=== PATIENT | female | born 1950 | race Caucasian/White ===

== ENCOUNTER 2016-08-19 17:18 | Emergency (ER) | payer MEDICARE ==
[~2016-08-19] VITALS: Ht 160 cm; Wt 56.7 kg
[2016-08-19 17:25] VITALS: BP 135/76
--- NOTE | 2016-08-19 17:54 | EKG ---
[address] [address] Test Date: 2016-08-19 Test Time: 17:50:28 Pat Name: LOPEZ CHRISTIANSON Department: Room: Gender: F Tax Processor: KAMI : 1950 Requested By: ROD PUTNAM Order Number: [id number] Reading MD: Measurements Intervals [place] Rate: 72 P: 40 HI: 146 QRS: -39 QRSD: 84 T: 44 QT: 404 QTc: 444 Interpretive Statements SINUS RHYTHM ABNORMAL LEFT AXIS DEVIATION R-S TRANSITION ZONE IN V LEADS DISPLACED TO THE LEFT LEFT ANTERIOR FASCICULAR BLOCK ABNORMAL ECG RI6.01 Unconfirmed report No previous ECG available for comparison
--- NOTE | 2016-08-19 18:29 | ED.ADGEN ---
Past History Past Medical History: Anxiety, High Cholesterol, Hypertension, TIA Past Surgical History: Appendectomy, Hysterectomy Alcohol Use: None Drug Use: None Adult General HPI HPI Patient is a 66-year-old female presents complaining of 4-5 day history of intermittent palpitations. She denies any associated diaphoresis, dyspnea, nausea, vomiting. She states that it is most pronounced at night which she relates out of bed and begins to think about all the increased stress and events in her life. She does have a history of anxiety. She was seen by her counselor yesterday. She did take an Ativan shortly prior to arrival today reports that is made an improvement in her symptoms. She denies any jerman pain but reports a "fluttering" on both sides of her chest. Review of Systems Review of Systems Constitutional: Denies fever or chills [] Eyes: Denies change in visual acuity, redness, or eye pain [] HENT: Denies nasal congestion or sore throat [] Respiratory: Denies cough or shortness of breath [] Cardiovascular: No additional information not addressed in HPI [] GI: Denies abdominal pain, nausea, vomiting, bloody stools or diarrhea [] : Denies dysuria or hematuria [] Musculoskeletal: Denies back pain or joint pain [] Integument: Denies rash or skin lesions [] Neurologic: Denies headache, focal weakness or sensory changes [] Endocrine: Denies polyuria or polydipsia [] Allergies Allergies Allergies Coded Allergies Type Severity Reaction Last Updated Verified No Known Drug Allergies 08/19/16 No Physical Exam Physical Exam Constitutional: Well developed, well nourished, no acute distress, non-toxic appearance. [] HENT: Normocephalic, atraumatic, bilateral external ears normal, oropharynx moist, no oral exudates, nose normal. [] Eyes: PERRLA, EOMI, conjunctiva normal, no discharge. [] Neck: Normal range of motion, no tenderness, supple, no stridor. [] Cardiovascular:Heart rate regular rhythm, no murmur [] Lungs & Thorax: Bilateral breath sounds clear to auscultation [] Abdomen: Bowel sounds normal, soft, no tenderness, no masses, no pulsatile masses. [] Skin: Warm, dry, no erythema, no rash. [] Back: No tenderness, no CVA tenderness. [] Extremities: No tenderness, no cyanosis, no clubbing, ROM intact, no edema. [] Neurologic: Alert and oriented X 3, normal motor function, normal sensory function, no focal deficits noted. [] Psychologic: Affect normal, judgement normal, mood normal. [] Current Patient Data Vital Signs Vital Signs Date Time Temp Pulse Resp B/P Pulse Ox O2 Delivery O2 Flow Rate FiO2 08/19/16 17:25 98.2 78 18 98 Room Air Lab Results Laboratory Tests Test 08/19/16 18:10 08/19/16 18:14 08/19/16 18:30 White Blood Count 6.4x10^3/uL (4.0-11.0) Red Blood Count 4.10x10^6/uL (3.50-5.40) Hemoglobin 13.0g/dL (12.0-15.5) Hematocrit 38.5% (36.0-47.0) Mean Corpuscular Volume 94fL (79-100) Mean Corpuscular Hemoglobin 32pg (25-35) Mean Corpuscular Hemoglobin Concent 34g/dL (31-37) Red Cell Distribution Width 12.8% (11.5-14.5) Platelet Count 188x10^3/uL (140-400) Neutrophils (%) (Auto) 63% (31-73) Lymphocytes (%) (Auto) 28% (24-48) Monocytes (%) (Auto) 6% (0-9) Eosinophils (%) (Auto) 3% (0-3) Basophils (%) (Auto) 0% (0-3) Neutrophils # (Auto) 4.1x10^3uL (1.8-7.7) Lymphocytes # (Auto) 1.8x10^3/uL (1.0-4.8) Monocytes # (Auto) 0.4x10^3/uL (0.0-1.1) Eosinophils # (Auto) 0.2x10^3/uL (0.0-0.7) Basophils # (Auto) 0.0x10^3/uL (0.0-0.2) Sodium Level 144mmol/L (136-145) Potassium Level 3.8mmol/L (3.5-5.1) Chloride Level 107mmol/L (98-107) Carbon Dioxide Level 28mmol/L (21-32) Anion Gap 9 (6-14) 18mmol/L (6-14) H Blood Urea Nitrogen 16mg/dL (7-20) Creatinine 1.1mg/dL (0.6-1.0) H Estimated GFR (Cockcroft-Gault) 49.4 BUN/Creatinine Ratio 15 (6-20) Glucose Level 138mg/dL (70-99) H 134mg/dL (60-99) H Calcium Level 8.9mg/dL (8.5-10.1) Total Bilirubin 0.9mg/dL (0.2-1.0) Aspartate Amino Transferase (AST) 24U/L (15-37) Alanine Aminotransferase (ALT) 29U/L (14-59) Alkaline Phosphatase 92U/L (46-116) Troponin I Quantitative < 0.017ng/mL (0-0.055) Total Protein 6.8g/dL (6.4-8.2) Albumin 3.7g/dL (3.4-5.0) Albumin/Globulin Ratio 1.2 (1.0-1.7) POC Troponin I 0.00ng/ml (<0.08) POC Hemoglobin 12.6gm/dL POC Hematocrit 37% POC Sodium 141mmol/L (135-145) POC Potassium 3.5mmol/L (3.5-5.0) POC Chloride 103mmol/L (98-110) POC Total CO2 25mmol/L (23-32) POC Blood Urea Nitrogen 15mg/dL (8-26) POC Creatinine 0.9mg/dL (0.5-1.4) POC Ionized Calcium (Marita) 1.13mmol/L (1.13-1.32) EKG EKG EKG interpreted by me, normal sinus rhythm, 70 bpm, no ST segment elevation, left axis deviation. [] Radiology/Procedures Radiology/Procedures Chest x-ray interpreted by me, no acute cardiopulmonary process. [] Course & Med Decision Making Course & Med Decision Making Pertinent Labs and Imaging studies reviewed. (See chart for details) Given the patient's reassuring constellation of symptoms and her history of anxiety combined with her reassuring workup today do believe the patient is appropriate for discharge. She will follow with her primary care physician in the next 2-3 days and return emergency department sooner she develops any new or worsening symptoms. [] Final Impression Final Impression Chest pain Anxiety[] Problems: Dragon Disclaimer Dragon Disclaimer This electronic medical record was generated, in whole or in part, using a voice recognition dictation system. ROD PUTNAM MD Aug 19, 2016 18:29
[2016-08-19 18:33] LABS: BASO % 0 % (0-3); EOS # 0.2 x10^3/uL (0.0-0.7); EOS % 3 % (0-3); HEMATOCRIT 38.5 % (36.0-47.0); LYMPH # 1.8 x10^3/uL (1.0-4.8); LYMPH % 28 % (24-48); MEAN CORPUSCULAR HEMOGLOBIN 32 pg (25-35); MEAN CORPUSCULAR HGB CONC 34 g/dL (31-37); MEAN CORPUSCULAR VOLUME 94 fL (79-100); MONO # 0.4 x10^3/uL (0.0-1.1); MONO % 6 % (0-9); NEUT # 4.1 x10^3uL (1.8-7.7); NEUT % 63 % (31-73); PLATELET COUNT 188 x10^3/uL (140-400); RED CELL DISTRIBUTION WIDTH 12.8 % (11.5-14.5); WHITE BLOOD COUNT 6.4 x10^3/uL (4.0-11.0)
[2016-08-19 18:38] LABS: HEMOGLOBIN ISTAT 12.6 gm/dL; POTASSIUM ISTAT 3.5 mmol/L (3.5-5.0)
[2016-08-19 18:42] LABS: ALBUMIN 3.7 g/dL (3.4-5.0); ALBUMIN/GLOBULIN RATIO 1.2 (1.0-1.7); CALCIUM 8.9 mg/dL (8.5-10.1); CREATININE 1.1 mg/dL (0.6-1.0); GFR 49.4; POTASSIUM 3.8 mmol/L (3.5-5.1); TOTAL BILIRUBIN 0.9 mg/dL (0.2-1.0); TOTAL PROTEIN 6.8 g/dL (6.4-8.2)
--- NOTE | 2016-08-20 08:15 | RAD ---
Chest, 2 views, 08/19/2016: History: Chest pain with palpitations The heart size and pulmonary vascularity are normal. No pulmonary infiltrates are seen. There is no evidence of pleural fluid. IMPRESSION: No acute cardiopulmonary abnormality is detected.
== END 2016-08-19 19:15 | disposition home or self-care (01) ==
LOC: ER 17:18
DX: R07.9 Chest pain, unspecified (principal); F41.9 Anxiety disorder, unspecified; E78.00 Pure hypercholesterolemia, unspecified; I10 Essential (primary) hypertension; Z86.73 Personal history of transient ischemic attack (TIA), and cerebral infarction without residual deficits
CPT/HCPCS: 36415; 71020; 80047; 80053; 84484; 85027; 93005; 99285-25

== ENCOUNTER 2021-10-07 11:03 | Emergency (ER) | payer BC, MEDICARE ==
[~2021-10-07] VITALS: Ht 160 cm; Wt 66.4 kg
[2021-10-07 11:15] VITALS: BP 156/81
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
--- NOTE | 2021-10-07 12:35 | RAD ---
CT scan of the head without contrast 10/07/2021 Clinical History: Altered mental status. Technique: Unenhanced, contiguous, 5 mm axial sections were obtained through the head. One or more of the following individualized dose reduction techniques were utilized for this study: 1. Automated exposure control. 2. Adjustment of the mA and/or kV according to patient size. 3. Use of iterative reconstruction technique. Findings: Comparison study is dated 05/08/2016. There is generalized parenchymal atrophy. Areas of decreased attenuation are seen within the perivent ricular and subcortical white matter of both cerebral hemispheres consistent with areas of small vess el ischemic disease. No acute parenchymal abnormality is seen. No extra-axial fluid collection is not ed. No skull fracture is seen. Impression: No acute intracranial abnormality is seen. Electronically signed by: Shubham Sorenson MD (10/07/2021 12:32 PM) [id number]
[2021-10-07 13:13] LABS: BASO # 0.1 x10^3/uL (0.0-0.2); BASO % 1 % (0-3); EOS % 1 % (0-3); HEMATOCRIT 41.4 % (36.0-47.0); HEMOGLOBIN 13.8 g/dL (12.0-15.5); LYMPH # 1.3 x10^3/uL (1.0-4.8); LYMPH % 15 % (24-48); MEAN CORPUSCULAR HEMOGLOBIN 32 pg (25-35); MEAN CORPUSCULAR HGB CONC 33 g/dL (31-37); MEAN CORPUSCULAR VOLUME 96 fL (79-100); MONO # 0.5 x10^3/uL (0.0-1.1); MONO % 5 % (0-9); NEUT # 6.9 x10^3uL (1.8-7.7); NEUT % 79 % (31-73); PLATELET COUNT 244 x10^3/uL (140-400); RED CELL DISTRIBUTION WIDTH 13.8 % (11.5-14.5); WHITE BLOOD COUNT 8.7 x10^3/uL (4.0-11.0)
[2021-10-07 13:16] LABS: CALCIUM 9.3 mg/dL (8.5-10.1); CREATININE 0.9 mg/dL (0.6-1.0); GFR 61.4; POTASSIUM 4.1 mmol/L (3.5-5.1)
[2021-10-07 13:22] LABS: SALIC 1.2 mg/dL (2.8-20.0)
[2021-10-07 13:23] LABS: ACETAMIN < 2.0 mcg/mL (10-30); ETHANOL < 10 mg/dL (0-10)
[2021-10-07 13:28] LABS: ALBUMIN 3.7 g/dL (3.4-5.0); MAGNESIUM 2.3 mg/dL (1.8-2.4); PHOSPHORUS 3.1 mg/dL (2.6-4.7); TOTAL BILIRUBIN 0.6 mg/dL (0.2-1.0); TOTAL PROTEIN 7.5 g/dL (6.4-8.2)
[2021-10-07 13:45] LABS: INFLUENZA A PATIENT NEGATIVE (NEGATIVE); INFLUENZA B PATIENT NEGATIVE (NEGATIVE)
--- NOTE | 2021-10-07 23:29 | EKG ---
[address] [address] Test Date: 2021-10-07 Test Time: 13:06:48 Pat Name: LOPEZ CHRISTIANSON Department: Room: Gender: F Sales Project Coordinator: BRANDY : 1950 Requested By: DAVID MORTENSEN Order Number: [id number] Reading MD: Ayush Arroyo Measurements Intervals [place] Rate: 62 P: -26 ID: [id number] QRS: -26 QRSD: 76 T: 47 QT: 442 QTc: 451 Interpretive Statements SINUS RHYTHM LEFTWARD AXIS Electronically Signed On 10-09-2021 17:16:39 CDT by Ayush Arroyo
== END 2021-10-07 14:07 | disposition home or self-care (01) ==
LOC: ER 11:03
DX: Z13.89 Encounter for screening for other disorder (principal); F03.90 Unspecified dementia, unspecified severity, without behavioral disturbance, psychotic disturbance, mood disturbance, and anxiety; F41.9 Anxiety disorder, unspecified; E78.00 Pure hypercholesterolemia, unspecified; I10 Essential (primary) hypertension; Z20.822 Contact with and (suspected) exposure to COVID-19; Z86.73 Personal history of transient ischemic attack (TIA), and cerebral infarction without residual deficits
CPT/HCPCS: 36415; 70450; 80053; 80329; 83735; 83880; 84100; 84443; 84484; 85025; 87428; 93005; 99284; C9803; G0480; U0003